=== PATIENT | male | born 1950 | race Caucasian/White ===

== ENCOUNTER 2017-07-17 05:59 | Inpatient (IN) ==
[2017-07-17] MEDS ORDERED: Albuterol 2.5 MG/3 ML NEBULIZER IH ONE (06:16)
[2017-07-17] MEDS ORDERED: CeFAZolin Pre 2,000 MG/100 ML 2,000 MG/100 ML BAG IVPB ONE (06:16)
[2017-07-17] MEDS ORDERED: Lidocaine -MPF 1% 2 ML VIAL ID ONE (06:16)
[2017-07-17] MEDS ORDERED: Plasma-Lyte A (PH 7.4) 1,000 ML IVC SCH (06:30)
--- NOTE | 2017-07-17 06:52 | Anesthesia Evaluation PreOp ---
Date of Encounter: 07/17/17 Time of Encounter: 07:04 - Past History Planned Operation: Endograft AAA repair Cardiac History: HTN, Hyperlipidemia, Other (AAA) Pulmonary History: Smoker [employer] History: Seizures (once in [place] in the s; none since), Other ( Schizoaffective disorder) Other Medical History: Denies Any Significant HX Anesthesia History: No Prior Anesthetic Complications Alcohol Use: none Drug use: none Medications and Allergies Aspirin 81 mg PO DAILY 07/17/17 [History] Atenolol [Tenormin] 25 mg PO DAILY 07/17/17 [History] Atorvastatin Calcium [Lipitor] 10 mg PO DAILY 07/17/17 [History] Calcium Carbonate 650 mg PO DAILY 07/17/17 [History] Docusate Sodium [Dok] 100 mg PO BID 07/17/17 [History] Fluticasone Propionate Nasal [Flonase] 1 spray NS DAILY 07/17/17 [History] LevETIRAcetam [Roweepra] 500 mg PO BID 07/17/17 [History] Losartan Potassium [Cozaar] 50 mg PO DAILY 07/17/17 [History] Mv-Mn/FA/Vit K/Lycop/Lut/Coq10 [Daily Multivitamin Capsule] 1 tab PO DAILY 07/17 [History] OLANZapine [Olanzapine Odt] 20 mg PO HS 07/17/17 [History] Paliperidone Palmitate [Invega Sustenna] 234 mg IM Q28D 07/17/17 [History] Pseudoephedrine HCl 60 mg PO Q6H PRN 07/17/17 [History] amLODIPine [Norvasc] 5 mg PO DAILY 07/17/17 [History] 3 Allergy/AdvReac Type Severity Reaction Status Date / Time carbamazepine [From Tegretol] Allergy Anaphylaxis Verified 07/17/17 06:44 clozapine [From Clozaril] Allergy See Verified 07/17/17 07:06 Comments divalproex sodium Allergy Anaphylaxis Verified 07/17/17 06:44 [From Depakote] [place] Allergy Anaphylaxis Verified 07/17/17 06:44 - Meds/Allergy Pre-op Review Medications Reviewed: Yes Allergies Reviewed: Yes Beta Blockers on Current Med List: Yes If Beta Blockers taken, Date/Time (Last Dose taken): 07-16-17 atenolol 21:00 Anesthesia Results - Labs Laboratory Tests 07/12/17 07/12/17 07/12/17 14:52 14:52 14:52 WBC 4.6 Hgb 13.0 Hct 36.5 L Plt Count 160 PT 10.8 INR 1.0 APTT 30.5 Sodium 131 L Potassium 4.0 Chloride 96 L Carbon Dioxide 29 BUN 9 Creatinine 0.93 Est GFR ( Amer) > 60 Est GFR (Non-Af Amer) > 60 BUN/Creatinine Ratio 10 Glucose 96 Calculated Osmolality 271 L Calcium 8.9 Nasal Screen MRSA (PCR) 07/12/17 14:52 WBC Hgb Hct Plt Count PT INR APTT Sodium Potassium Chloride Carbon Dioxide BUN Creatinine Est GFR ( Amer) Est GFR (Non-Af Amer) BUN/Creatinine Ratio Glucose Calculated Osmolality Calcium Nasal Screen MRSA (PCR) Negative - Imaging EKG: report reviewed, image reviewed (SINUS TACHYCARDIA WITH OCCASIONAL VENTRICULAR PREMATURE COMPLEXES RIGHT BUNDLE BRANCH BLOCK [120+ ms QRS DURATION , UPRIGHT V1, 40+ ms S IN I/aVL/V4/V5/V6] LEFT ANTERIOR FASCICULAR BLOCK [QRS AXIS <= -45, QR IN I, RS IN II] LEFT VENTRICULAR HYPERTROPHY AND ST-T CHANGE [ VOLTAGE CRITERIA PLUS ST/T ABNORMALITY] POSSIBLE SEPTAL MYOCARDIAL INFARCTION [ 30 ms Q WAVE IN V1/V2], OF INDETERMINATE AGE) Additional studies: TTE: Impressions: LVEF 55-60%. Normal left ventricular size and systolic function. There is evidence of mild diastolic dysfunction of the left ventricle. Normal right ventricular size and function. No significant valvular dysfunction. No pulmonary hypertension. Anesthesia Exam Last Vital Signs Temp 98.0 F 07/17/17 06:22 Pulse 71 07/17/17 06:22 Resp 18 07/17/17 06:22 BP 146/88 07/17/17 06:22 Pulse Ox 96 07/17/17 06:22 Weight: 73 kg NPO (# of Hours): >> 8 hrs - HEENT Pupil (Motor): Pupils equal, EOMI Mallampati: III Teeth: Edentulous Oral Opening: Greater than 3 - [employer] LOC: Oriented [employer] Motor: Normal RUE, Normal LUE, Normal RLE, Normal LLE, Normal Face - Cardiac Rhythm: Regular Murmur: None - Pulmonary Breath Sounds: bilateral Clear Respiratory Effort: Symmetrical Anesthesia Assess/Plan ASA Score: 3 Modified [place] Scale for Level of Consciousness: Cooperative, oriented, and tranquil Anesthetic Plan: General Monitoring Plan: Standard Monitors, A-Line Recovery Plan: PACU
[2017-07-17] MEDS ORDERED: Heparin 1,000 UNITS/500 mL NS 1,500 ML ONE (07:21)
[2017-07-17] MEDS ORDERED: *HR* Midazolam HCl 2 MG/2 ML VIAL ONE (07:27)
[2017-07-17] MEDS ORDERED: *HR* Propofol 200 MG/20 ML VIAL IVP ONE (07:27)
[2017-07-17] MEDS ORDERED: *HR* FentaNYL (PF) 100 MCG/2 ML VIAL ONE (07:27)
[2017-07-17] MEDS ORDERED: Lidocaine -MPF 2% 2 ML VIAL ONE (07:28)
[2017-07-17] MEDS ORDERED: *HR* Succinylcholine 200 MG/10 ML VIAL IVP ONE (07:29)
--- NOTE | 2017-07-17 07:30 | History & Physical Report ---
Date of Encounter: 07/17/17 Time of Encounter: 07:25 24 Hour HP Update - Instructions Instructions: If the History and Physical is less than 30 days old and was completed prior to A.M. admission and or procedure and has NOT been updated on calendar day of procedure please complete this update prior to performing procedure. - Update Patient reports changes in Medical Condition: No Changes in examination, assessment, or condition: No Changes in Medication: No Preop tests/diagnostics Reviewed: Yes Surgery Remains Indicated: Yes Consent for Planned Operative Procedure(s) Verified: Yes - Pre-Operative Checklist Preoperative Checklist Indicated: Yes Prophylactic Antibiotic Ordered: Yes Home Medications Include Beta Joan: Yes Beta Joan Taken Today (Day of Surgery): Yes Beta Joan Taken Yesterday (Day Prior to Surgery): Yes Is VTE Prophylaxis Indicated?: Yes
[2017-07-17] MEDS ORDERED: Heparin 1,000 UNITS/500 mL NS 500 ML ONE (07:32)
[2017-07-17] MEDS ORDERED: *HR* Rocuronium Bromide 50 MG/5 ML VIAL ONE (08:21)
[2017-07-17] MEDS ORDERED: Ketamine *HR* 500 MG/10 ML MDV ONE (08:25)
[2017-07-17] MEDS ORDERED: Ondansetron 4 MG/2 ML VIAL ONE (08:28)
[2017-07-17] MEDS ORDERED: Dexamethasone 4 MG/ML VIAL ONE (08:28)
[2017-07-17] MEDS ORDERED: *HR* Magnesium Sulfate 1 GM/2 ML VIAL ONE (08:29)
[2017-07-17] MEDS ORDERED: *HR* HYDROmorphone (PF) 1 MG/ML SYRINGE IVP PRN (09:00)
[2017-07-17] MEDS ORDERED: *HR* Labetalol 20 MG/4 ML SYRINGE IVP PRN ×2 (09:00→11:30)
[2017-07-17] MEDS ORDERED: *HR* Promethazine 25 MG/ML VIAL IVP PRN (09:00)
--- NOTE | 2017-07-17 09:02 | Anesthesia Procedures ---
Date of Encounter: 07/17/17 Time of Encounter: 08:00 Procedures: Anesthesia - Arterial Line Consent obtained: written consent Time out performed: Yes Sedation: Versed (mg): 2 Sedation: Fentanyl (mcg): 100 Supplemental Oxygen via Nasal Cannula (L/min): 15 Local Anesthetic: Lidocaine 1% Amount of Anesthetic used (mls): 1 Size (Gauge): 20 Length (inches): 1 3/4 Technique Used: sterile prep, guide wire technique, direct puncture technique Post-Procedure: line taped into place Patient tolerated procedure: well, no complications Complications: none Site: Radial R Vitals: see anesthetic record Comments: placed using ultrasound guidance
[2017-07-17] MEDS ORDERED: *HR* Heparin 5,000 UNIT/ML VIAL ONE (09:05)
[2017-07-17] MEDS ORDERED: *HR* Phenylephrine 10 MG/ML VIAL ONE (09:14)
[2017-07-17] MEDS ORDERED: Ringers Solution, Lactated 1,000 ML IVC SCH (09:30)
[2017-07-17] MEDS ORDERED: Ketorolac 30 MG/ML VIAL ONE (10:02)
[2017-07-17] MEDS ORDERED: Neostigmine Methylsulfate 3 MG/3 ML SYRINGE ONE (10:06)
--- NOTE | 2017-07-17 10:21 | Operative Note ---
Date of procedure: 07/17/17 Pre-op diagnosis: AAA Post-op diagnosis: same Procedure: Endovascular repair of abdominal aortic aneurysm using Medtronic Endurant IIs 28 x 14 x 103 mm stent graft system 2 stent graft limbs were placed with the right measuring 16 x 16 x 93 mm. The left limb was 16 x 13 x 93 mm Radiologic supervision and interpretation for endovascular abdominal aortic aneurysm repair Bilateral open femoral exposure Catheter and sheath placement into aorta, nonselective Complications: none Anesthesia: GETA Surgeon: Maurice Russo Co-Surgeon: Omega Lundberg Estimated blood loss (cc): 200 Specimen: none Condition: stable Disposition: PACU Procedure in Detail: History Mati Connelly is a 67-year-old white male who was identified as having an abdominal aortic aneurysm through the [facility] about 4-5 years ago. This aneurysm has increased in size. It is now proximally 6.1 cm. His surgery was initially delayed because of dental caries. He has had his teeth extracted and he now presents for surgery for his abdominal aortic aneurysm. Procedure After informed consent was obtained the patient was taken to the operating room. General endotracheal anesthesia was established under arterial line pressure monitoring. The abdomen groin and upper thighs were sterilely prepped and draped. A timeout protocol was observed. A 2 team surgical approach was utilized due to the patient's comorbid conditions. This would also facilitate intraoperative decision-making as well as decrease blood loss and decrease anesthetic time. An incision was made in each groin in a transverse orientation. The common femoral artery was exposed and controlled. An 18-gauge needle was then introduced in a retrograde orientation to both femoral arteries and a guidewire was inserted. This was followed by a 8 Indonesian sheath and dilator. The dilator was removed and the sheath was aspirated and flushed. A marker pigtail catheter was then introduced over the wire via the right side. An abdominal aortogram was then performed by placing the catheter in a suprarenal location. Measurements were then made. The pigtail catheter was removed and then placed onto the left side where further angiograms were obtained. The main body was selected to be placed via the right femoral approach. The main body that was selected was an Medtronic Endurant IIs system. This was a 28 x 14 x 103 mm device. This device was then deployed to the point of exposing the docking limb. Then from the left side the main body was cannulated and appropriate confirmation made to ensure that the wire was in the appropriate position. An angiogram was then performed via the left side sheath. This demonstrated the iliac bifurcation and a stent graft limb was selected that was 16 x 13 x 93 mm. This was then deployed. The carrier device was removed and 11 Indonesian sheath was then placed in the left groin. Attention was then directed back to the right side. This device was then completely deployed and the suprarenal stent was deployed and the top cap was recaptured and removed. An 11 Indonesian sheath was placed and an angiogram performed of the right iliac system. With a measurement made with an selected a 16 x 16 x 93 mm stent limb to complete the endograft repair. This device was then deployed into the right iliac system with appropriate docking into the main body. A Reliant balloon was then placed from both the right in the left side in a gentle angioplasty performed of the stent graft to fully deploy the system and seal the proximal and distal stent graft zones. With this done the pigtail catheter was then reinserted via the right side and placed in a suprarenal location. A formal completion aortogram was then made. This demonstrated patency of the renal arteries and iliac artery bifurcation. There are no findings of endovascular leak. The appearance of the stent graft was normal and in appropriate position. The access devices from the groin were then removed. The puncture sites at the left groin were repaired with 6-0 Prolene at the femoral artery. After appropriate backbleeding and flushing the vessels were open. The wounds were then irrigated and then closed using absorbable suture. There were no intraoperative complications. The patient tolerated the procedure well. The patient was extubated in the operating room and taken to the recovery room in stable condition.
--- NOTE | 2017-07-17 11:07 | Anesthesia Evaluation Post Op ---
Date of Encounter: 07/17/17 Time of Encounter: 11:00 - Vital Signs Vital Signs: Vital Signs/O2 Sat, Most Current Temp Pulse Resp BP Pulse Ox 97.2 F L 75 16 133/78 100 07/17/17 11:00 07/17/17 11:00 07/17/17 11:00 07/17/17 11:00 07/17/17 11:00 - Lungs Lungs: Clear Ascult./Percussion - Airway Airway: Non-obstructed - Cardiovascular Regular Rate - Mental Status Mental Status: Alert & Oriented, Answers Appropriately, Baseline Status - Pain Pain Scale: 0 Pain Scale used: Numeric (1 - 10) - Nausea Vomiting Nausea Vomiting: Not Present - Hydration Hydration: Ice chips, Pineda catheter - Discharge PostOp Status: Transfer Patient to floor
--- NOTE | 2017-07-17 11:18 | Operative Note ---
Date of procedure: 07/17/17 Pre-op diagnosis: Abdominal Aortic Aneurysm Post-op diagnosis: same Procedure: 1. Introduction of catheter into the aorta via right common femoral artery. 2. Introduction of catheter into the aorta via left common femoral artery. 3. Right femoral vessel exposure for endograft placement. 4. Left femoral vessel exposure for endograft placement. 5. Medtronic Endurant modular bifurcated aortic endograft placement with 1 docking limb including radiologic supervision and interpretation. 6. Placement of Medtronic Endurant right distal extension limb including radiologic supervision and interpretation. Complications: None Anesthesia: GETA Surgeon: Omega Lundberg Co-Surgeon: Maurice Russo Estimated blood loss (cc): 200 Specimen: None Condition: stable Disposition: PACU Procedure in Detail: Indications: The patient is a 67 year old male with a history of hyperlipidemia , hypertension and tobacco abuse who was found to have a 6.1cm infrarenal abdominal aortic aneurysm. His anatomy was acceptable for endograft placement. Repair of his aneurysm was recommended to reduce his risk of rupture. Procedure: The patient was identified in the preoperative area. The risks, benefits, and alternatives of the procedure were discussed. All questions were answered. The patient was taken to the operating room and placed in supine position on the operating room table. After the induction of general endotracheal anesthesia, he was cleaned and draped in normal sterile fashion. A two surgeon approach was utilized for this procedure in order to minimize anesthetic time and the risks for complications due to the patients comorbid conditions. In addition, a two surgeon approach was used for intraoperative decision making. Oblique incisions were made over both groins sharply. Hemostasis was obtained with electrocautery. Using blunt and sharp and electrocautery dissection, the bilateral common, deep and superficial femoral arteries were dissected circumferentially and surrounded with Vesseloops. At this point, the patient received heparin intravenously and then bilateral femoral punctures with large-bore needles were performed. J wires were advanced into the aorta under fluoroscopic view. The right wire initially would not advance into the aorta. Therefore a alana catheter and glidewire were used. The patient had a preexisting right common iliac stent. Given the difficulty advancing the wire, an angiogram was performed. An angioplasty was then performed with an 8 x 40mm balloon. A completion image revealed no significant residual stenosis. Given the anatomy, the main body was selected to be the right side in this patient. The needles were exchanged for bilateral sheaths and a long Pigtail catheter was advanced over the right wire into the aortic arch. A retrograde angiogram was performed to evaluate the left iliac system due to the presence of a previously placed iliac stent and possible stenosis on CT scan. The angiogram revealed that the left iliac vessels were appropriate for endograft placement. The wire was removed and an angiogram was then performed via a pigtail catheter for sizing of the graft. The wire was replaced with a stiff wire. The catheter was removed and repositioned in the suprarenal aorta via the left femoral artery. The main body was inserted over the stiff wire with the contralateral limb being in the ipsilateral position. An aortogram was then performed at the level of the renal artery. The graft was positioned just inferior to the renal arteries and the first 2 segments were deployed. Again an aortogram revealed adequate infrarenal placement. The graft was then further opened to the contralateral limb exposed. A final angiogram was performed confirming adequate infrarenal placement. The suprarenal stent was deployed in the usual fashion. The contralateral limb was then selected with a wire using a guiding catheter. Intragraft placement of the wire was confirmed by placing the pigtail and spinning it freely. An oblique view of the pelvis was performed with contrast to size the left extension limb. The sheath was removed and exchanged for the appropriate limb, which was advanced under fluoroscopic view and positioned. It was then expanded. The introducer and graft sheath were exchanged for a sheath. An oblique view of the right pelvis was performed and the length of the extension limb on the right was determined. The sheath was exchanged for the limb and then the limb was deployed. The introducer and graft sheath were exchanged for a sheath. Upon completion of the graft docking limb extension, a Reliant balloon was then advanced into the graft proximal and distal endpoints as well as overlap were expanded with gentle pressure. A flush completion angiogram revealed no evidence of an endoleak. Further imaging of the right femoral vessels revealed no evidience of stenosis. Tension was applied to the Vessel loops in the groin. The sheaths and wires were then removed. The bilateral arteriotomies were repaired with a running 6-0 Prolene. Antibiotic irrigation was infused into the groin. The bilateral groins incisions were closed with 2-0 Vicryl, 3-0 Vicryl and 4-0 Vicryl. Sterile dressings were applied. The patient was then extubated and taken to the recovery room in stable condition.
[2017-07-17] MEDS ORDERED: Naloxone 0.4 MG/ML INJ IVP PRN (11:30)
[2017-07-17] MEDS ORDERED: (Paliperidone Palmitate [Invega Sustenna] 234 MG) IM SCH (11:30)
[2017-07-17] MEDS ORDERED: *HR* Morphine 2 MG/ML SYRINGE IVP PRN ×2 (11:30)
[2017-07-17] MEDS ORDERED: Acetaminophen 325 MG TABLET PO PRN (11:30)
[2017-07-17] MEDS ORDERED: Ondansetron 4 MG/2 ML VIAL IVP PRN (11:30)
[2017-07-17] MEDS ORDERED: *HR* HYDROcodone/Acet 5/325 mg TABLET PO PRN (11:30)
[2017-07-17] MEDS: levETIRAcetam 250 MG TABLET PO SCH (19:49)
[2017-07-17] MEDS ORDERED: OLANZapine 10 MG TAB.RAPDIS PO SCH (21:00)
[2017-07-18 03:58] LABS: Basophils % 0.1 %; Eosinophils % 0.4 %; Hematocrit 29.8 % (37.5-50.1); Immature Granulocytes % 0.4 % (0-4); Lymphocytes # 1.4 K/mcL (0.6-4.6); Lymphocytes % 12.9 %; Mean Corpuscular HGB Conc 34.2 g/dL (31.6-35.5); Mean Corpuscular Hemoglobin 31.8 pg (28.0-33.3); Mean Corpuscular Volume 92.8 fL (83.0-100.0); Mean Platelet Volume 8.6 fL (9.4-12.4); Monocytes % 9.1 %; Neutrophils # 8.6 K/mcL (1.6-8.9); Platelet Count 137 K/mcL (140-400); Red Blood Count 3.21 M/mcL (4.19-5.50); Red Cell Distribution Width 12.8 % (11.5-14.5); Segmented Neutrophils % 77.1 %
[2017-07-18 04:07] LABS: Hemoglobin 10.2 g/dL (12.9-16.9)
[2017-07-18 04:09] LABS: BUN/Creatinine Ratio 15 (6-26); Blood Urea Nitrogen 14 mg/dL (8-26); Calcium 8.4 mg/dL (8.6-10.8); Carbon Dioxide 30 mEq/L (19-29); Chloride 96 mEq/L (98-109); Glucose 135 mg/dL (70-99); Osmolality,Calculated 275 (280-300); Sodium 131 mEq/L (136-145); eGFR For African Americans > 60 (> 60); eGFR For Non-African Americans > 60 (> 60)
[2017-07-18 07:05] VITALS: BP 119/73
--- NOTE | 2017-07-18 08:48 | Discharge Summary ---
Date of Encounter: 07/18/17 Time of Encounter: 08:46 - Discharge Diagnosis (1) AAA (abdominal aortic aneurysm) Priority: Primary Status: Acute Comments: History of abdominal aortic aneurysm discovered approximate 5 years ago. The aneurysm is not expanded to greater than 6 cm. Patient was admitted for endovascular repair of abdominal aortic aneurysm. Qualifiers: Presence of rupture: without rupture Qualified Code(s): I71.4 - Abdominal aortic aneurysm, without rupture - Discharge Medications Home Medications: Aspirin 81 mg PO DAILY 07/17/17 [History] Atenolol [Tenormin] 25 mg PO DAILY 07/17/17 [History] Atorvastatin Calcium [Lipitor] 10 mg PO DAILY 07/17/17 [History] Calcium Carbonate 650 mg PO DAILY 07/17/17 [History] Docusate Sodium [Dok] 100 mg PO BID 07/17/17 [History] Fluticasone Propionate Nasal [Flonase] 1 spray NS DAILY 07/17/17 [History] LevETIRAcetam [Roweepra] 500 mg PO BID 07/17/17 [History] Losartan Potassium [Cozaar] 50 mg PO DAILY 07/17/17 [History] Mv-Mn/FA/Vit K/Lycop/Lut/Coq10 [Daily Multivitamin Capsule] 1 tab PO DAILY 07/17 [History] OLANZapine [Olanzapine Odt] 20 mg PO HS 07/17/17 [History] Paliperidone Palmitate [Invega Sustenna] 234 mg IM Q28D 07/17/17 [History] Pseudoephedrine HCl 60 mg PO Q6H PRN 07/17/17 [History] amLODIPine [Norvasc] 5 mg PO DAILY 07/17/17 [History] Allergies/Adverse Reactions: 3 Allergy/AdvReac Type Severity Reaction Status Date / Time carbamazepine [From Tegretol] Allergy Anaphylaxis Verified 07/17/17 06:44 clozapine [From Clozaril] Allergy See Verified 07/17/17 07:06 Comments divalproex sodium Allergy Anaphylaxis Verified 07/17/17 06:44 [From Depakote] [place] Allergy Anaphylaxis Verified 07/17/17 06:44 Date of admission: 07/17/17 11:16 Primary care physician: PCP NONE Consults: None Procedure(s) Performed: Endovascular repair of abdominal aortic aneurysm Discharging clinician: Maurice J Karan Anticipated date of discharge: 07/18/17 - Patient Status Disposition: Home, Self-Care Condition: Good Functional capacity at discharge: independent ambulation Overall status at discharge: patient is progressing back to baseline - Discharge Instructions Follow Up With: NONE,PCP [Primary Care Provider] - [place],PCP [Non-Partnered Physician] - 07/24/17 2:30 pm (THIS IS AT THE DISCHARGE CLINIC IN [place] [id number]) Maurice Russo MD [Partnered Physician] - 08/08/17 9:45 am Additional Instructions: Remove right and left groin dressings on , July 19. Resume usual medications at home. No lifting greater than 10 pounds. Patient may ambulate inside and outside. Patient may use stairs as tolerated. Keep right and left groin surgical sites dry for total of 5 days following surgery then patient may shower. No new prescriptions upon discharge. - Diet and Activity Activity: increase activity as tolerated Diet: advance to your usual diet - Hospital Course Hospital course: Mr. Connelly is a 67 year old male Admitted for elective repair of abdominal aortic aneurysm. This was discovered at the [facility] about 5 years ago. It is now expanded to greater than 6 cm. The patient underwent an endovascular repair. He had no periprocedural complications. He tolerated the procedure well. He had uneventful postoperative course. The patient was felt fit for discharge on the morning of postoperative day #1. - Time Spent with Patient Total time spent providing and/or coordinating discharge services: Exam Vital Signs, Last 4 Hours Temp Pulse Resp BP Pulse Ox 07/18/17 07:34 78 07/18/17 07:00 98.4 F 85 16 119/73 97 General: Present: Conversant, No Apparent Distress Cardiac: Present: Reg Rate and Rhythm, Normal S1 and S2 Lungs: Present: Normal Breath Sounds Neuro: Present: Alert and responsive, No focal deficits noted Abdomen: Present: Soft, Non-tender. Absent: Masses Vascular: Present: Normal capillary refill - VTE Documentation of Mechanical Device: Intermittent pneumatic compression device
[2017-07-18] MEDS: levETIRAcetam 250 MG TABLET PO SCH (08:55)
[2017-07-18] MEDS ORDERED: Aspirin 81 MG TAB.CHEW PO SCH (09:00)
[2017-07-18] MEDS ORDERED: Fluticasone Propionate Nasal 50 MCG/SPRAY BOTTLE NS SCH (09:00)
[2017-07-18] MEDS ORDERED: Multivit/Ca/Min/Fe/FA 1 TAB TABLET PO SCH (09:00)
[2017-07-18] MEDS ORDERED: amLODIPine 5 MG TABLET PO SCH (09:00)
== END 2017-07-18 10:19 | disposition home or self-care (01) | DRG 269 ==
LOC: SAMDAY 05:59 → 2NNU 11:16
PROVIDERS: ADMIT Surgery Vascular Surgery; ATTEND Surgery Vascular Surgery